=== PATIENT | male | born 1950 | race Caucasian/White ===

== ENCOUNTER 2017-07-04 08:59 | Outpatient (CLI) | payer MEDICARE, OTHER ==
[2017-07-04 10:34] LABS: Hematocrit 45.7 % (42.0-52.0); Mean Platelet Volume 8.1 fL (7.4-10.4); Red Blood Cell (RBC) Count 4.35 mill/uL (4.70-6.10); White Blood Cell (WBC) Count 9.8 thou/uL (4.8-10.8)
[2017-07-04 10:37] LABS: Prothrombin Time 12.9 SEC (12.0-14.7)
[2017-07-04 10:38] LABS: PTT 31.4 SEC (22.9-36.1)
[2017-07-04 10:58] LABS: ALT (SGPT) 10 U/L (8-55); AST (SGOT) 20 U/L (5-34); Alkaline Phosphatase 66 U/L (40-150); Anion Gap 9 mmol/L (10-20); BUN (Urea Nitrogen) 11 mg/dL (8.4-25.7); Calc. Creatinine Clearance 0 mL/min (70-130); Calcium 9.5 mg/dL (7.8-10.44); Carbon Dioxide 28 mmol/L (23-31); Chloride 102 mmol/L (98-107); Cholesterol 196 mg/dl (< 200 Desired); Estimated GFR-MDRD 90; Globulin 2.9 g/dL (2.4-3.5); LDL Cholesterol, Calculated 114 mg/dL; Protein, Total 7.3 g/dL (5.8-8.1)
== END 2017-07-04 09:00 | disposition home or self-care (01) ==
LOC: LABBT 08:59
PROVIDERS: ATTEND Internal Medicine Cardiovascular Disease
DX: Z01.818 Encounter for other preprocedural examination (principal); I25.10 Atherosclerotic heart disease of native coronary artery without angina pectoris
CPT/HCPCS: 80053; 80061; 85027; 85610; 85730; 93005; 93010

== ENCOUNTER → 2017-07-08 | Day surgery (SDC) | payer MEDICARE, OTHER ==
[2017-07-04 09:23] VITALS: BMI 19.5
[~2017-07-08] MED LIST: Diazepam 5 MG TAB ONE; Heparin 10,000 UNITS/1 ML VIAL ONE; Iopamidol 370 76% 100 ML VIAL ONE; Nitroglycerin 100MG/250ML BOT 250 ML ONE
--- NOTE | 2017-07-08 14:10 | CON ---
DATE OF CONSULTATION: 07/08/2017 REASON FOR CONSULTATION: Evaluation for aortic valve replacement. PERTINENT HISTORY: The patient is a 67-year-old male recently found to have a heart murmur on preoperative evaluation for cataract surgery. This prompted cardiology evaluation. Echocardiogram demonstrated severe AI and moderate with moderate reduction in left ventricular function. Nuclear stress test was abnormal. Cardiac catheterization today, however, demonstrated no coronary artery disease. The patient was subsequently referred for consideration of aortic valve replacement. PAST MEDICAL HISTORY: 1. 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 2. Melanoma, right leg, treated with wide excision and right groin lymph node dissection with no adjuvant therapy in 2004. 3. Benign prostatic hypertrophy. 4. Myasthenia gravis. PAST SURGICAL HISTORY: As described above, only. ALLERGIES: None. SOCIAL HISTORY: One pack per day cigarette smoker for most of his adult life. A daily drinker of both beer and whiskey. FAMILY HISTORY: Noncontributory. REVIEW OF SYSTEMS: No history of hypertension, diabetes, kidney or liver disease, stroke or claudication. CURRENT MEDICATIONS: Flonase, gabapentin, Flomax, trazodone, and p.r.n. acetaminophen and Advil. LABORATORY AND X-RAY: Creatinine 0.85. INR 1.0. Hemoglobin 15.4. Platelet count 159,000. PHYSICAL EXAMINATION: HEIGHT: 5 feet 10 inches. WEIGHT: 139 pounds. VITAL SIGNS: Blood pressure 145/80, heart rate 72, temperature 36.6 centigrade. GENERAL: Thin male in no acute distress. He is fully oriented. HEENT: Grossly unremarkable. NECK: Without JVD or adenopathy. LUNGS: Clear with good inspiratory effort. HEART: Regular rate and rhythm with prominent diastolic murmur. ABDOMEN: Soft and nontender, without palpable mass. EXTREMITIES: Without edema. VASCULAR: Palpable radial, femoral, and ankle pulses bilaterally. No carotid bruits were appreciated. Abdominal aorta is palpably nonenlarged. NEUROLOGIC: No focal deficits. IMPRESSION: Severe aortic insufficiency, moderate aortic stenosis, and moderate reduction in left ventricular function. RECOMMENDATIONS: Referral for consideration of TAVR as the patient is not a candidate for reoperative aortic valve replacement based on the past chest wall irradiation. This was discussed with the patient and his family and referring journeyman machinist. ANNIE
== END ==
LOC: CCL 05:48
PROVIDERS: ATTEND Psychiatry & Neurology Psychiatry
DX: R94.31 Abnormal electrocardiogram [ECG] [EKG] (principal); G70.00 Myasthenia gravis without (acute) exacerbation; F17.210 Nicotine dependence, cigarettes, uncomplicated; Z88.5 Allergy status to narcotic agent; Z79.899 Other long term (current) drug therapy; Z85.820 Personal history of malignant melanoma of skin; Z85.238 Personal history of other malignant neoplasm of thymus; Z92.3 Personal history of irradiation; Z98.890 Other specified postprocedural states
CPT/HCPCS: 93458; 93567; C1769; J1644

== ENCOUNTER 2017-07-25 07:30 | Outpatient (CLI) | payer MEDICARE, OTHER ==
--- NOTE | 2017-07-25 10:15 | ULT ---
ABDOMINAL AORTIC ULTRASOUND: (Rodríguez scale, Doppler color flow imaging, and spectral analysis) Date: 07/25/17 CLINICAL HISTORY: Abdominal aortic aneurysm screening. History of smoking. FINDINGS: The proximal abdominal aorta demonstrates caliber of 2.2 cm, mid abdominal aorta 2.3 cm, and distal abdominal aorta 1.8 cm. Scattered mild atherosclerotic irregularity is present. IMPRESSION: 1. No evidence of abdominal aortic aneurysm. 2. Atherosclerotic disease is present. POS: [facility]
== END 2017-07-25 07:31 | disposition home or self-care (01) ==
LOC: ULT 07:30
PROVIDERS: ATTEND Family Medicine
DX: Z13.6 Encounter for screening for cardiovascular disorders (principal); Z00.00 Encounter for general adult medical examination without abnormal findings; I70.90 Unspecified atherosclerosis
CPT/HCPCS: 76775

== ENCOUNTER 2018-08-19 08:21 | Outpatient (CLI) | payer MEDICARE, OTHER ==
--- NOTE | 2018-08-19 11:34 | CT ---
CT CHEST WITHOUT CONTRAST PULMONARY LUNG SCAN: Date: 08/19/18 HISTORY: Low dose screening. Nicotine dependence. COMPARISON: None. FINDINGS: Lung screening specific: No suspicious pulmonary nodules. Potentially significant incidentals (Lung-RADS Category S): Negative. Pulmonary incidentals: There is bronchiectasis within the upper lobes bilaterally, predominantly med ially, with some focal subpleural reticulation, likely from prior surgical changes from the mediastin um. Prior endovascular aortic valve replacement. Other incidentals: Prior endovascular aortic valve replacement. Multiple midline sternotomy wires. U pper abdomen is unremarkable. No acute displaced rib fracture. IMPRESSION: 1. Lung-RADS Category 1: Negative. Follow-up CT and low dose screening in 12 months is recommended. 2. Lung-RADS Category S Potentially significant incidentals: Negative. No incidental findings requi red urgent additional evaluation or follow-up. POS: [facility]
== END 2018-08-19 08:22 | disposition home or self-care (01) ==
LOC: CT 08:21
PROVIDERS: ATTEND Family Medicine
DX: F17.210 Nicotine dependence, cigarettes, uncomplicated (principal); Z00.00 Encounter for general adult medical examination without abnormal findings; Z12.2 Encounter for screening for malignant neoplasm of respiratory organs
CPT/HCPCS: G0297

== ENCOUNTER 2018-12-30 13:35 | Emergency (ER) | payer MEDICARE, OTHER ==
[2018-12-30] MEDS ORDERED: Lidocaine 1% 20 ML MDV ONE (13:51)
[2018-12-30] MEDS ORDERED: Adacel (T-DAP) 0.5 ML SYRINGE ONE (14:14)
[2018-12-30] MEDS ORDERED: Bacitracin Zinc 1 Packet ONE (14:36)
== END 2018-12-30 14:58 | disposition home or self-care (01) ==
LOC: SCSER 13:35
DX: S61.012A Laceration without foreign body of left thumb without damage to nail, initial encounter (principal); F17.210 Nicotine dependence, cigarettes, uncomplicated; Z79.899 Other long term (current) drug therapy; W26.0XXA Contact with knife, initial encounter
CPT/HCPCS: 12002; 90471; 90715; 99406; J2001

== ENCOUNTER 2019-05-19 19:07 | Emergency (ER) | payer MEDICARE, OTHER ==
[2019-05-19] MEDS ORDERED: Piperacillin/Tazobactam 4.5 GM VIAL ONE (20:00)
[2019-05-19] MEDS ORDERED: Sodium Chloride 0.9% 100 ML ONE ×2 (20:02→21:07)
[2019-05-19] MEDS ORDERED: Clindamycin/D5W 900 mg/50 ml Premix Bag ONE (20:04)
[2019-05-19 20:06] LABS: Hemoglobin 14.2 g/dL (14.0-18.0); Mean Corpuscular HGB CONC 35.4 g/dL (32.0-36.0); Mean Corpuscular Hemoglobin 35.8 pg (27.0-31.0); Mean Platelet Volume 7.9 fL (7.4-10.4); Platelet Count 177 thou/uL (130-400); RBC Distribution Width 11.6 % (11.5-14.5); Red Blood Cell (RBC) Count 3.96 mill/uL (4.70-6.10); White Blood Cell (WBC) Count 15.4 thou/uL (4.8-10.8)
[2019-05-19 20:12] LABS: ALT (SGPT) 15 U/L (8-55); AST (SGOT) 23 U/L (5-34); Alkaline Phosphatase 67 U/L (40-150); Anion Gap 14 mmol/L (10-20); BUN (Urea Nitrogen) 19 mg/dL (8.4-25.7); Bilirubin, Total 0.9 mg/dL (0.2-1.2); Calc. Creatinine Clearance 0 mL/min (70-130); Calcium 9.8 mg/dL (7.8-10.44); Carbon Dioxide 24 mmol/L (23-31); Chloride 100 mmol/L (98-107); Estimated GFR-MDRD 83; Glucose 114 mg/dL (80-115); Sodium 134 mmol/L (136-145)
[2019-05-19 20:26] LABS: #Basophils 0.1 thou/uL (0.0-0.2); #Eosinphils 0.1 thou/uL (0.0-0.7); #Lymphocytes 0.9 thou/uL (1.20-3.40); #Monocytes 0.6 thou/uL (0.11-0.59); #Neutrophils 13.7 thou/uL (1.40-6.50); %Basophils 0.6 % (0.0-1.0); %Eosinophils 0.8 % (0.0-10.0); %Lymphocytes 5.9 % (21.0-51.0); %Monocytes 3.6 % (0.0-10.0); %Neutrophils 89.1 % (42.0-75.0); Band 3 % (5-11); Lymphocytes 5 % (21-51); MDiff Complete? YES; Macrocytosis SLIGHT = 6-15 cells (100X) (0-5/hpf); Monocytes 4 % (0-10); Neutrophil 88 % (42-75); Platelet Morphology Comment Appears Adequate; Stomatocytes SLIGHT = 2-5 cells (100X) (0-1/hpf)
--- NOTE | 2019-05-19 20:33 | ULT ---
US Venous Doppler Rt Unilat History: Pain Comparison: None. Findings: Real-time grayscale, color, and spectral analysis of the right lower extremity venous syste m was performed. The common femoral, femoral, proximal portions greater saphenous and deep femoral veins as well as the popliteal and posterior tibial veins were interrogated. Lower extremity edema at the ankle. Normal flow, augmentation, and compression. Impression: No deep venous thrombosis.
== END 2019-05-19 22:46 | disposition short-term general hospital (02) ==
LOC: SCSER 19:07
DX: L03.115 Cellulitis of right lower limb (principal); F17.210 Nicotine dependence, cigarettes, uncomplicated; Z79.899 Other long term (current) drug therapy
CPT/HCPCS: 36415; 80053; 83605; 85025; 87040; 96365; 96366; 96367; J2543; J3370; J3490

== ENCOUNTER 2019-08-31 07:13 | Outpatient (CLI) | payer MEDICARE, OTHER ==
--- NOTE | 2019-08-31 09:48 | CT ---
CT CHEST WITHOUT CONTRAST: DATE: 08/31/2019. PROVIDED CLINICAL HISTORY: History of smoking, low-dose screening. FINDINGS: Comparison 08/19/2018. The heart, pericardium, and great vessels demonstrate an unchanged unenhanced CT appearance, suboptimally evaluated in the absence of IV contrast. Left subclavian cardiac pacing device, medial sternotomy changes, and prosthetic aortic valve are redemonstrated. There is no evidence for thoracic lymph node enlargement with limitations due to lack of IV contrast. The airway appears patent and of normal caliber. No concerning pulmonary nodule is evident. Biapical pleural parenchymal scarring-type changes and lo calized fibrosis with bronchiectasis in the far medial aspects of the right upper and left upper lobe s redemonstrated. There is no evidence for pleural fluid, pleural thickening, or pneumothorax. The airway appears othe rwise of normal caliber and appears patent. The osseous structures demonstrate no concerning lytic or blastic lesions. The visualized portions of the upper abdomen appear grossly unremarkable. IMPRESSION: 1. Lung RADS category 1 - negative. Continue annual screening. 2. Stable chronic findings as above. POS: [facility]
== END 2019-08-31 07:14 | disposition home or self-care (01) ==
LOC: CT 07:13
PROVIDERS: ATTEND Family Medicine
DX: Z00.00 Encounter for general adult medical examination without abnormal findings (principal); Z12.2 Encounter for screening for malignant neoplasm of respiratory organs; F17.210 Nicotine dependence, cigarettes, uncomplicated
CPT/HCPCS: G0297

== ENCOUNTER 2020-09-02 07:47 | Outpatient (CLI) | payer MEDICARE, OTHER ==
--- NOTE | 2020-09-02 08:34 | CT ---
EXAM: CT Pulmonary Lung Scan PROVIDED CLINICAL HISTORY: Nicotine dependence. Patient is current smoker and has smoked 1 pack per day for 40 years. COMPARISON: 08/31/2019 FINDINGS: Triple lead left subclavian AICD device, median sternotomy, and aortic valve replacement are again no lupe. Lack of intravenous contrast limits evaluation of the mediastinal structures and vasculature. However , no enlarged lymph nodes are seen by CT size criteria on this nonenhanced CT exam. Vascular calcifications are seen in the thoracic aorta. Biapical pleural and parenchymal scarring is again seen and unchanged. There is persistent linear den sities likely related to scarring in the medial aspects of the right upper and left upper lobes with associated minimal bronchiectasis. This is a stable finding. No discrete pulmonary nodule or mass is seen within the lungs bilaterally. There is no consolidation or pleural fluid. The large airways appear patent. Degenerative changes are seen in the visualized lower cervical spine as well as involving the thoraci c and visualized upper lumbar spine. No suspicious lytic or sclerotic osseous lesions are identified. CT pulmonary lung scan is stable when compared to prior study. IMPRESSION: 1. Lung RADS category 1: Negative. Continued follow-up low-dose CT scan thorax is recommended in [address] [place] [address]. 2. Lung RADS category S potentially significant incidental: Negative. No incidental findings requirin g additional evaluation or follow-up.
== END 2020-09-02 07:48 | disposition home or self-care (01) ==
LOC: BICCT 07:47
PROVIDERS: ATTEND Family Medicine
DX: Z12.2 Encounter for screening for malignant neoplasm of respiratory organs (principal); F17.210 Nicotine dependence, cigarettes, uncomplicated
CPT/HCPCS: G0297

== ENCOUNTER 2021-09-11 07:21 | Outpatient (CLI) | payer MEDICARE, OTHER | END 2021-09-11 07:22 | disposition home or self-care (01) | LOC: PET 07:21 | PROVIDERS: ATTEND Family Medicine | DX: R91.8 Other nonspecific abnormal finding of lung field (principal); C34.12 Malignant neoplasm of upper lobe, left bronchus or lung; K20.90 Esophagitis, unspecified without bleeding | CPT/HCPCS: 78815; A9552 ==

== ENCOUNTER 2021-12-22 10:15 | Outpatient (CLI) | payer MEDICARE, OTHER ==
[2021-12-22] MEDS ORDERED: Iopamidol 370 76% 100 ML VIAL ONE (12:35)
== END 2021-12-22 10:16 | disposition home or self-care (01) ==
LOC: PET 10:15
PROVIDERS: ATTEND Internal Medicine Hematology & Oncology
DX: C34.12 Malignant neoplasm of upper lobe, left bronchus or lung (principal)
CPT/HCPCS: 70470; 78815; A9552; Q9967

== ENCOUNTER 2022-06-13 16:21 | Emergency (ER) | payer MEDICARE, OTHER ==
[2022-06-13] MEDS ORDERED: Aztreonam 1 GM in Sodium Chloride 0.9% 100 ML IVPB SCH (17:15)
[2022-06-13 17:17] LABS: #Lymphocytes 0.4 thou/uL (1.20-3.40); #Monocytes 0.6 thou/uL (0.11-0.59); %Basophils 0.1 % (0.0-1.0); %Eosinophils 0.1 % (0.0-10.0); %Lymphocytes 4.2 % (21.0-51.0); %Monocytes 6.8 % (0.0-10.0); %Neutrophils 88.8 % (42.0-75.0); Hemoglobin 9.7 g/dL (14.0-18.0); Mean Corpuscular HGB CONC 31.3 g/dL (32.0-36.0); Mean Corpuscular Hemoglobin 32.9 pg (27.0-31.0); Mean Platelet Volume 8.3 fL (7.4-10.4); Platelet Count 133 thou/uL (130-400); Red Blood Cell (RBC) Count 2.94 mill/uL (4.70-6.10)
[2022-06-13 17:36] LABS: ALT (SGPT) 24 U/L (8-55); AST (SGOT) 31 U/L (5-34); Albumin 1.9 g/dL (3.4-4.8); Alkaline Phosphatase 113 U/L (40-110); Anion Gap 11 mmol/L (10-20); BUN (Urea Nitrogen) 20 mg/dL (8.4-25.7); Bilirubin, Total 0.6 mg/dL (0.2-1.2); Calc. Creatinine Clearance 0 mL/min (70-130); Calcium 8.1 mg/dL (7.8-10.44); Carbon Dioxide 29 mmol/L (23-31); Chloride 96 mmol/L (98-107); Estimated GFR 104; Globulin 2.5 g/dL (2.4-3.5); Glucose 118 mg/dL (83-110); Potassium 4.3 mmol/L (3.5-5.1); Protein, Total 4.4 g/dL (5.8-8.1); Sodium 132 mmol/L (136-145)
[2022-06-13 18:41] LABS: CKMB 10.2 ng/mL (0-6.6)
[2022-06-13] MEDS ORDERED: Vancomycin 1 GM/200 ML BAG ONE (18:53)
[2022-06-13 20:56] LABS: Troponin I 0.048 ng/mL (< 0.028)
== END 2022-06-13 22:30 ==
LOC: ERS 16:21
DX: I82.622 Acute embolism and thrombosis of deep veins of left upper extremity (principal); J69.0 Pneumonitis due to inhalation of food and vomit; I50.9 Heart failure, unspecified; I11.0 Hypertensive heart disease with heart failure; J44.9 Chronic obstructive pulmonary disease, unspecified; Z87.891 Personal history of nicotine dependence; Z79.899 Other long term (current) drug therapy
CPT/HCPCS: 36415; 71045; 80053; 82553; 84484; 85025; 87040; 93005; 94760; 96365; 96367; J3370; J3490